=== PATIENT | male | born 1955 | race Caucasian/White ===

== ENCOUNTER 2020-02-05 20:48 | Emergency (ER) | payer MEDICARE, BC ==
[2020-02-05] MEDS ORDERED: Ketorolac 30 MG/ML SDV IM ONE (21:14)
--- NOTE | 2020-02-05 21:21 | EDM.PDOC ---
ED HPI GENERAL MEDICAL PROBLEM - General Chief Complaint: General Stated Complaint: ankle injury Time Seen by Provider: 02/05/20 21:00 Source of Information: Reports: Patient History Limitations: Reports: No Limitations - History of Present Illness INITIAL COMMENTS - FREE TEXT/NARRATIVE: pt arrives via POV stating he stepped off a trailer, inverted his left ankle and experienced severe pain. after the initial injury he states the ankle began to swell and was painful to walk on. he states pain with ROM and palpation of his lateral ankle. pt denies any other injuries, numbness or tingling to LLE. Past Medical History - Past Health History Medical/Surgical History: Denies Medical/Surgical History Social & Family History - Family History Family Medical History: Noncontributory ED ROS GENERAL - Review of Systems Review Of Systems: Comprehensive ROS is negative, except as noted in HPI. ED EXAM, GENERAL - Physical Exam Exam: See Below Exam Limited By: No Limitations General Appearance: Alert, WD/WN Eye Exam: Bilateral Eye: EOMI, PERRL Head: Atraumatic, Normocephalic Cardiovascular: Normal Peripheral Pulses Peripheral Pulses: 2+: Radial (L), Radial (R), Posterior Tibial (L), Posterior Tibial (R), Dorsalis Pedis (L), Dorsalis Pedis (R) Extremities: Other (left ankle is edematous with TTP to lateral malleolus. pain with active and passive ROM) Neurological: Alert, Oriented, CN II-XII Intact, Normal Cognition Course - Vital Signs Last Recorded V/S: Last Vital Signs Temp 97.5 F 02/05/20 21:01 Pulse 86 02/05/20 21:01 Resp 20 02/05/20 21:01 BP 144/104 H 02/05/20 21:01 Pulse Ox - Orders/Labs/Meds Orders: Active Orders 24 hr Category Date Time Status Ankle Min 3V Lt [CR] Stat Exams 02/05/20 21:13 Ordered Meds: Medications Discontinued Medications Generic Name Dose Route Start Last Admin Trade Name Freq PRN Reason Stop Dose Admin Ketorolac Tromethamine 15 mg 02/05/20 21:14 02/05/20 21:24 Toradol IM 02/05/20 21:15 15 mg ONETIME ONE Administration - Radiology Interpretation Free Text/Narrative:: wet read ankle xray shows no fracture, dislocation, bony abnormality noted. Departure - Departure Time of Disposition: 21:51 Disposition: Home, Self-Care 01 Condition: Good Clinical Impression: Ankle injury - Discharge Information *PRESCRIPTION DRUG MONITORING PROGRAM REVIEWED*: Not Applicable *COPY OF PRESCRIPTION DRUG MONITORING REPORT IN PATIENT NEYMAR: Not Applicable Forms: ED Department Discharge Additional Instructions: no ankle fracture by my read tylenol 1000mg and ibuprofen 600mg four times a day RICE therapy (rest, ice, compression, elevate) lace up boots if you choose to walk use crutches for next week Sepsis Event Note (ED) - Evaluation Sepsis Screening Result: No Definite Risk - Focused Exam Vital Signs: Vital Signs Temp Pulse Resp BP 02/05/20 21:01 97.5 F 86 20 144/104 H - Problem List & Annotations (1) Ankle injury Status: Acute Current Visit: Yes Qualifiers: Encounter type: initial encounter Laterality: left Qualified Code(s): S99.912A - Unspecified injury of left ankle, initial encounter - Problem List Review Problem List Initiated/Reviewed/Updated: Yes - My Orders Last 24 Hours: My Active Orders 02/05/20 21:13 Ankle Min 3V Lt [CR] Stat - Assessment/Plan Last 24 Hours: My Active Orders 02/05/20 21:13 Ankle Min 3V Lt [CR] Stat Assessment:: assessment: ankle injury plan: RICE OTC tylenol and ibuprofen ELIOT wrap crutches follow up with orthopedic clinic or primary care of choice in 7-10 days.
--- NOTE | 2020-02-05 22:20 | CR ---
DATE OF SERVICE: 02/05/2020 CLINICAL DATA: Anterior and posterior lateral malleolar TTP. LEFT ANKLE: There is soft tissue swelling over the lateral malleolus. No acute fracture or dislocation. There are osteoarthritic changes involving multiple joints. There is a posterior calcaneal spur. [id number] MTDD
== END 2020-02-05 22:22 | disposition home or self-care (01) ==
LOC: LB.ED 20:48
DX: S99.912A Unspecified injury of left ankle, initial encounter (principal); X50.9XXA Other and unspecified overexertion or strenuous movements or postures, initial encounter
CPT/HCPCS: 73610-LT; 96372; 99283-25; J1885